=== PATIENT | male | born 1950 | race Caucasian/White ===

== ENCOUNTER 2017-07-31 14:24 | Emergency (ER) | payer MEDICARE ==
[2017-07-31 15:21] LABS: ABS Basophils 0.1 10^3/ul (0-0.2); ABS Eosinophils 0.5 10^3/ul (0-0.6); ABS Lymphocytes 1.9 10^3/ul (1.0-4.8); ABS Monocytes 0.9 10^3/ul (0-0.8); ABS Neutrophils 6.4 10^3/ul (1.5-7.7); ABS Nucleated RBC 0 10^3/ul; Eosinophil % 4.6 % (0-6); Hematocrit 38 % (42-52); Lymphocyte % 19.9 % (25-47); Mean Corpuscular HGB Conc 34 g/dl (31-36); Mean Corpuscular Hemoglobin 32 pg (27-31); Mean Corpuscular Volume 92 fL (80-94); Mean Platelet Volume 8.1 um3 (7.4-10.4); Nucleated Red Blood Cells % 0.1; Platelet Count 245 10^3/ul (150-450); Red Cell Distribution Width 14 % (10.5-15); White Blood Count 9.7 10^3/ul (3.5-10.8)
[2017-07-31 15:29] LABS: Urine Appearance Clear; Urine Blood Negative (Negative); Urine Color Yellow; Urine Ketones Negative (Negative); Urine Protein Negative (Negative); Urine Specific Gravity 1.015 (1.010-1.030); Urine Urobilinogen Negative (Negative)
[2017-07-31 15:47] LABS: EGFR Non-African American 28.8 (>60)
[2017-07-31 21:28] VITALS: BP 121/67
--- NOTE | 2017-08-03 10:45 | ED ---
Eyad Sinha Angela, scribed for Babak Braga MD on 07/31/17 at 1520 . Psychiatric Complaint - HPI Summary HPI Summary: This pt is a 66 y/o male presenting to [facility] for worsening depression. Pt reports he has "not been having a good time" for a while now. Pt states that this has been going on for the past 6 months. When asked about suicidal ideation he states "I have gotten to the point where I think I don't have too much to lose." Denies SI or HI thoughts/plan. Denies any hx of depression or anxiety. - History Of Current Complaint Chief Complaint: EDMentalHealth Time Seen by Provider: 07/31/17 14:37 Hx Obtained From: Patient Onset/Duration: Lasting Weeks, Still Present Timing: Weeks Severity Currently: Moderate Character: Depressed Aggravating Factor(s): Nothing Alleviating Factor(s): Nothing Related History: Negative For: Prior Psychiatric Issues Has Suicidal: Denies: Thoughts, With A Plan Has Homicidal: Denies: Thoughts, With A Plan - Allergies/Home Medications Allergies/Adverse Reactions: Allergies Allergy/AdvReac Type Severity Reaction Status Date / Time No Known Allergies Allergy Verified 07/31/17 14:28 Home Medications: Home Medications NK [No Home Medications Reported] 07/31/17 [History Confirmed 07/31/17] PMH/Surg Hx/FS Hx/Imm Hx Endocrine/Hematology History: Denies: Hx Diabetes Cardiovascular History: Denies: Hx Hypertension Psychiatric History: Denies: Hx Anxiety, Hx Depression Infectious Disease History: No Infectious Disease History: Denies: Traveled Outside the [place] in Last 30 Days - Family History Known Family History: Negative: Cardiac Disease - Social History Alcohol Use: None Substance Use Type: Reports: None Smoking Status (MU): Never Smoked Tobacco Review of Systems Negative: Fever ENT: Negative Cardiovascular: Negative Respiratory: Negative Gastrointestinal: Negative Positive: Depressed. Negative: Other - SI or HI thoughts/plan All Other Systems Reviewed And Are Negative: Yes Physical Exam - Summary Physical Exam Summary: VITAL SIGNS: Reviewed. GENERAL: Patient is a well-developed and nourished male. Patient is not in any acute respiratory distress. HEAD AND FACE: No signs of trauma. No ecchymosis, hematomas or skull depressions. No sinus tenderness. EYES: PERRLA, EOMI x 2, No injected conjunctiva, no nystagmus. EARS: Hearing grossly intact. Ear canals and tympanic membranes are within normal limits. MOUTH: Oropharynx within normal limits. NECK: Supple, trachea is midline, no adenopathy, no JVD, no carotid bruit, no c- spine tenderness, neck with full ROM. CHEST: Symmetric, no tenderness at palpation LUNGS: Clear to auscultation bilaterally. No wheezing or crackles. CVS: Regular rate and rhythm, S1 and S2 present, no murmurs or gallops appreciated. ABDOMEN: Soft, non-tender. No signs of distention. No rebound no guarding, and no masses palpated. Bowel sounds are normal. EXTREMITIES: FROM in all major joints, no edema, no cyanosis or clubbing. NEURO: Alert and oriented x 3. No acute neurological deficits. Speech is normal and follows commands. SKIN: Dry and warm Triage Information Reviewed: Yes Vital Signs On Initial Exam: Initial Vitals Temp Pulse Resp BP Pulse Ox 98.4 F 72 16 124/65 97 07/31/17 14:26 07/31/17 14:26 07/31/17 14:26 07/31/17 14:26 07/31/17 14:26 Vital Signs Reviewed: Yes Diagnostics - Vital Signs Vital Signs Temp Pulse Resp BP Pulse Ox 07/31/17 14:26 98.4 F 72 16 124/65 97 - Laboratory Result Diagrams: 07/31/17 15:15 07/31/17 15:15 Lab Statement: Any lab studies that have been ordered have been reviewed, and results considered in the medical decision making process. Course/Dx - Course Assessment/Plan: This pt is a 66 y/o male, with no hx of depression or anxiety, who presents with increased depression for the past 6 months. He denies SI or HI thoughts/plan. Test results without any significant abnormalities. Pt is medically cleared at 15:43. He is awaiting for a mental health evaluation. At this point MHE is still pending. Therefore pt will be signed out to Dr. Tong, pending disposition, awaiting MHE. - Differential Dx/Clinical Impression Provider Diagnosis: Depression Discharge - Sign-Out/Discharge Documenting (check all that apply): Sign-Out Patient Signing out patient TO: Chato Tong - pending dispo, awaiting MHE - Discharge Plan Condition: Stable Referrals: No Primary Care Phys,NOPCP [Primary Care Provider] - The documentation as recorded by the Eyad stone Angela accurately reflects the service I personally performed and the decisions made by me, Babak Braga MD.
== END 2017-07-31 21:05 | disposition home or self-care (01) ==
LOC: ED 14:24
DX: F32.9 Major depressive disorder, single episode, unspecified (principal)
CPT/HCPCS: 36415; 80053; 80307; 80320; 80329; 81003; 84443; 85025; 99285; G0480